=== PATIENT | female | born 1995 | race African-American/Black ===

== ENCOUNTER 2018-06-04 14:16 | Emergency (ER) | payer MEDICAID, OTHER ==
[~2018-06-04] VITALS: Ht 170.2 cm; Wt 72.0 kg
[~2018-06-04 14:16] MED LIST: LEVE1000 PO; PREN-55 PO
[2018-06-04] MEDS ORDERED: LEVETIRACETAM 500MG TABLET PO ONE (14:45)
[2018-06-04] MEDS ORDERED: LORAZEPAM 1MG TABLET PO ONE (14:45)
[2018-06-04] MEDS ORDERED: ACETAMINOPHEN 325MG TABLET PO ONE (14:45)
[2018-06-04 15:29] LABS: BASOPHILS % 0.9 % (0.0-2.0); CHLORIDE 106 mEq/L (98-107); EOSINOPHILS % 0.4 % (0.0-5.0); HEMATOCRIT. 35.9 % (36.0-48.0); HEMOGLOBIN. 11.7 g/dL (12.0-16.0); LYMPHOCYTES % 25.8 % (20.0-50.0); MEAN CORPUSCULAR HEMOGLOBIN 27.3 pg (28.0-32.0); MEAN CORPUSCULAR VOLUME 84.2 fL (81.0-99.0); MEAN PLATELET VOLUME 8.5 fl (7.4-10.4); MONOCYTES % 6.4 % (2.0-8.0); NEUTROPHILS % 66.5 % (40.0-76.0); PLATELET 210 x1000/uL (130-400); RED BLOOD CELL COUNT 4.26 mill/uL (4.2-5.4); RED CELL DISTRIBUTION WIDTH 14.4 % (11.6-14.6)
[2018-06-04 15:34] LABS: ETHANOL BLOOD < 10 mg/dL
[2018-06-04 15:38] LABS: CREATINE KINASE 72 IU/L (26-192)
[2018-06-04 15:43] LABS: HCG SCREEN NEGATIVE
[2018-06-04 15:52] LABS: CARBAMAZEPINE < 0.5 ug/mL (4-12); PHENOBARBITAL < 2.1 ug/mL (15.0-40.0); VALPROIC ACID < 3.0 ug/mL (50-100)
[2018-06-04 16:30] VITALS: BP 91/52
[2018-06-04 17:14] LABS: CLARITY URINE CLEAR (CLEAR); COLOR URINE YELLOW (YELLOW); KETONES URINE NEGATIVE (NEGATIVE); LEUKOCYTE ESTERASE URINE NEGATIVE (NEGATIVE); NITRITE URINE NEGATIVE (NEGATIVE); OCCULT BLOOD URINE 2+ (NEGATIVE); PROTEIN URINE NEGATIVE (NEGATIVE); SPECIFIC GRAVITY URINE 1.013 (1.005-1.030); UROBILINOGEN URINE 0.2 E.U./dL (0.2-1.0)
[2018-06-04 17:32] LABS: *BARBITURATES SCREEN URINE NEGATIVE (NEGATIVE); CANNABINOID URINE SCREEN NEGATIVE (NEGATIVE)
[2018-06-04 17:33] LABS: *AMPHETAMINES SCREEN URINE NEGATIVE (NEGATIVE); *BENZODIAZEPINES SCREEN URINE NEGATIVE (NEGATIVE); *COCAINE SCREEN URINE NEGATIVE (NEGATIVE); METHADONE URINE SCREEN NEGATIVE (NEGATIVE); OPIATES URINE SCREEN NEGATIVE (NEGATIVE); PHENCYCLIDINE URINE SCREEN NEGATIVE (NEGATIVE)
== END 2018-06-04 16:50 | disposition home or self-care (01) ==
LOC: ER 14:43
DX: R56.9 Unspecified convulsions (principal); R53.1 Weakness; D64.9 Anemia, unspecified; Z98.890 Other specified postprocedural states
CPT/HCPCS: 36415; 80053; 80156; 80165; 80184; 80185; 80305; 80307; 80329; 81003; 82550; 84443; 84484; 84703; 85025; 87186; 93005; 99284; Z7610